=== PATIENT | female | born 1990 | race Hispanic/Latino ===

== ENCOUNTER 2017-04-30 11:36 | Emergency (ER) | payer MEDICAID, OTHER ==
[2017-04-30 11:36] VITALS: BMI 25.0
--- NOTE | 2017-04-30 12:39 | ED PDOC ---
Arrival/HPI - General Chief Complaint: Fever Time Seen by Provider: 04/30/17 12:05 Historian: Patient - History of Present Illness Narrative History of Present Illness (Text): 26 y/o female w/ no sig pmhx other than cigarette smoking presents c/o 3 days of fever(t max at home:103 deg F), generalized headache (denying any nuchal rigidity norfocal neurological deficits ) / sore throat/dysphagia but denying po intolerance/cough productive of whitish sputum, diffuse myalgiae, 1 episode of vomiting in the am today, denies meningococcal rash/sick contacts . Pt most bothered by sore throat. Time/Duration: < week Symptom Course: Unchanged Quality: Aching Past Medical History - Provider Review Nursing Documentation Reviewed: Yes - Tetanus Immunization Tetanus Immunization: Unknown - Past Medical History Past Medical History: No Previous - Psychiatric Hx Substance Use: No - Past Surgical History Past Surgical History: No Previous - Suicidal Assessment Feels Threatened In Home Enviroment: No Family/Social History - Physician Review Nursing Documentation Reviewed: Yes Family/Social History: No Known Family HX Smoking Status: Light Smoker < 10 Cigarettes Daily Hx Alcohol Use: Yes Frequency of alcohol use: Socially Hx Substance Use: No Hx Substance Use Treatment: No Allergies/Home Meds Allergies/Adverse Reactions: Allergies No Known Allergies Allergy (Verified 04/30/17 11:51) Review of Systems - Physician Review All systems were reviewed & negative as marked: Yes - Review of Systems Constitutional: Fevers Eyes: Normal ENT: Sore Throat Respiratory: Cough, Sputum Cardiovascular: Normal Gastrointestinal: Normal Genitourinary Female: Normal Musculoskeletal: Myalgias Skin: Normal Neurological: Headache Endocrine: Normal Hemo/Lymphatic: Normal Psychiatric: Normal Physical Exam Vital Signs Reviewed: Yes Vital Signs Temp Pulse Resp BP Pulse Ox 04/30/17 13:42 99.6 F 103 H 18 103/66 96 04/30/17 13:26 99.6 F 04/30/17 12:26 103 F H 04/30/17 12:16 103.0 F H 108 H 17 102/57 L 99 04/30/17 11:46 102.4 F H 117 H 18 116/76 97 Temperature: Febrile Blood Pressure: Normal Pulse: Regular Respiratory Rate: Normal Appearance: Positive for: Well-Appearing, Non-Toxic, Comfortable Pain Distress: None Mental Status: Positive for: Alert and Oriented X 3 - Systems Exam Head: Present: Atraumatic, Normocephalic Pupils: Present: PERRL Extroacular Muscles: Present: EOMI Conjunctiva: Present: Normal Mouth: Present: Moist Mucous Membranes Pharnyx: Present: ERYTHEMA, TONSILS ENLARGED, Other (+ sunmandibular LN) Neck: Present: Normal Range of Motion Respiratory/Chest: Present: Clear to Auscultation, Good Air Exchange, Other ( occasional rhonchi ). No: Respiratory Distress, Accessory Muscle Use Cardiovascular: Present: Regular Rate and Rhythm, Normal S1, S2. No: Murmurs Abdomen: Present: Normal Bowel Sounds. No: Tenderness, Distention, Peritoneal Signs Back: Present: Normal Inspection Upper Extremity: Present: Normal Inspection. No: Cyanosis, Edema Lower Extremity: Present: Normal Inspection. No: Edema Neurological: Present: GCS=15, CN II-XII Intact, Speech Normal, Motor Func Grossly Intact, Normal Sensory Function, Normal Cerebellar Funct, Norm Deep Tendon Reflexes, Gait Normal, Memory Normal, Normal 2Pt Descrimination Skin: Present: Warm, Dry, Normal Color. No: Rashes Psychiatric: Present: Alert, Oriented x 3, Normal Insight, Normal Concentration Medical Decision Making ED Course and Treatment: 26 y/o woman w/ 3 days of fever and uri like symptoms. labs/imaging wnl, fever defervesced. will d/c home on supportive rx/z-juli course given smoking history w/ mucoid expectoration/antitussive/advised pmd f/u . 04/30/17 14:18 - Lab Interpretations Lab Results: 04/30/17 12:36 04/30/17 12:36 Lab Results 04/30/17 12:36: Lactic Acid 1.4 04/30/17 12:36: Sodium 134, Potassium 4.3, Chloride 100, Carbon Dioxide 26, Anion Gap 12, BUN 7, Creatinine 1.0, Est GFR ( Amer) > 60, Est GFR (Non- Af Amer) > 60, Random Glucose 93, Calcium 8.8, Phosphorus 3.1, Magnesium 1.7, Total Bilirubin 0.5, AST 33, ALT 40, Alkaline Phosphatase 85, Total Protein 8.1 , Albumin 4.1, Globulin 4.0, Albumin/Globulin Ratio 1.0 L 04/30/17 12:36: WBC 5.5, RBC 4.53, Hgb 14.4, Hct 43.1, MCV 95.1, MCH 31.8, MCHC 33.4, RDW 14.7 H, Plt Count 146, MPV 9.0, Gran % 54.7, Lymph % (Auto) 34.4, [place] % (Auto) 10.7 H, Eos % (Auto) 0.0 L, Baso % (Auto) 0.2, Gran # 3.01, Lymph # 1.9, Douglas # 0.6, Eos # 0.0, Baso # 0.01 04/30/17 12:30: Urine Color Light yellow, Urine Appearance Cloudy, Urine pH 6.0 , Ur Specific [place] >= 1.030, Urine Protein 30 H, Urine Glucose (UA) Negative , Urine Ketones Trace H, Urine Blood Small H, Urine Nitrate Negative, Urine Bilirubin Small H, Urine Urobilinogen 0.2, Ur Leukocyte Esterase Negative, Urine RBC 10 - 15, Urine WBC 1 - 3, Ur Epithelial Cells 3 - 4, Amorphous Sediment Large, Urine Bacteria Many, Urine Other Uyeast, Urine HCG, Qual Negative - Medication Orders Current Medication Orders: Discontinued Medications Acetaminophen (Tylenol 325mg Tab) 975 mg PO STAT STA Stop: 04/30/17 12:08 Last Admin: 04/30/17 12:26 Dose: 975 mg [facility] Pain/Vitals Document 04/30/17 12:26 HI (Rec: 04/30/17 12:26 [id number] Vitals Temperature (97.6 F-99.6 F) 103 F Temperature Source Oral Re-Assess: [facility] Pain/Vitals Document 04/30/17 13:26 HI (Rec: 04/30/17 13:39 [id number][facility] Pain Reassessment Is This A Pain ReAssessment? No Vitals Temperature (97.6 F-99.6 F) 99.6 F Azithromycin (Zithromax) 500 mg PO STAT STA PRN Reason: Protocol Stop: 04/30/17 12:36 Last Admin: 04/30/17 13:32 Dose: 500 mg Dexamethasone (Decadron Inj) 10 mg IVP STAT STA Stop: 04/30/17 12:34 Last Admin: 04/30/17 13:32 Dose: 10 mg IVP Administration Document 04/30/17 13:32 HI (Rec: 04/30/17 13:32 [id number][facility] Charges for Administration # of IVP Administrations 1 Sodium Chloride 2,000 ml/ IV (SUPPLIES) 2,000 mls @ 2,912.04 mls/hr IV ONCE ONE PRN Reason: 60 ML/KG/HR Stop: 04/30/17 12:06 Last Admin: 04/30/17 12:45 Dose: 2,912.04 mls/hr eMAR Start Stop Document 04/30/17 12:45 HI (Rec: 04/30/17 12:45 [id number][facility] Intravenous Solution Start Date 04/30/17 Start Time 12:45 Ketorolac Tromethamine (Toradol) 15 mg IVP STAT STA Stop: 04/30/17 12:34 Last Admin: 04/30/17 13:39 Dose: 15 mg MAR Pain Assessment Document 04/30/17 13:39 HI (Rec: 04/30/17 13:39 [id number][facility] Pain Reassessment Is this a pain reassessment? No Location Pain Location Body Site Generalized IVP Administration Document 04/30/17 13:39 HI (Rec: 04/30/17 13:39 [id number][facility] Charges for Administration # of IVP Administrations 1 Oseltamivir Phosphate (Tamiflu Cap) 75 mg PO ONCE ONE PRN Reason: Protocol Stop: 04/30/17 12:35 Last Admin: 04/30/17 13:32 Dose: 75 mg Disposition/Present on Arrival - Present on Arrival Any Indicators Present on Arrival: No History of DVT/PE: No History of Uncontrolled Diabetes: No Urinary Catheter: No History of Decub. Ulcer: No History Surgical Site Infection Following: None - Disposition Have Diagnosis and Disposition been Completed?: Yes Diagnosis: Upper respiratory infection Disposition: HOME/ ROUTINE Disposition Time: 14:20 Patient Plan: Discharge Condition: IMPROVED Discharge Instructions (ExitCare): Upper Respiratory Infection (ED), Viral Syndrome (ED) Print Language: JAMA[place] Additional Instructions: avoid dairy products, drink plenty of luids such as herbal teas/eleno/lemon/ peppermint. get extra rest and follow up with your pmd within the week fr a progress check. Prescriptions: Azithromycin 250 mg PO DAILY #4 tablet Benzocaine/Menthol [Cepacol Sore Throat] 1 constance MM Q2 PRN #30 constance PRN Reason: Pain, Mild (1-3) Ipratropium [Atrovent HFA] 0.018 mg IH Q6 PRN #1 inhaler PRN Reason: Cough Oseltamivir [Tamiflu Cap] 75 mg PO BID #10 cap Forms: [employer] ([place])
[2017-04-30 12:48] LABS: URINE APPEARANCE CLOUDY (CLEAR); URINE BILIRUBIN SMALL (NEGATIVE); URINE BLOOD SMALL (NEGATIVE); URINE COLOR LIGHT YELLOW (YELLOW); URINE GLUCOSE (UA) NEGATIVE (NEGATIVE); URINE KETONE TRACE mg/dL (NEGATIVE); URINE LEUKOCYTE ESTERASE NEGATIVE Leu/uL (NEGATIVE); URINE PROTEIN 30 mg/dL (<30 mg/dL); URINE UROBILINOGEN 0.2 E.U./dL (<1 E.U./dL)
[2017-04-30 12:57] LABS: BASO # 0.01 K/mm3 (0.0-2.0); BASO % 0.2 % (0.0-3.0); GRAN # 3.01 (1.4-6.5); GRAN % 54.7 % (50.0-68.0); HEMATOCRIT 43.1 % (36.0-48.0); LYMPH # 1.9 (1.2-3.4); LYMPH % 34.4 % (22.0-35.0); MEAN CELL VOLUME 95.1 fl (80.0-105.0); MEAN CORPUSCULAR HEMOGLOBIN 31.8 pg (25.0-35.0); MEAN CORPUSCULAR HGB CONC 33.4 g/dl (31.0-37.0); MONO # 0.6 (0.1-0.6); MONO % 10.7 % (1.0-6.0); RED CELL DISTRIBUTION WIDTH 14.7 % (11.5-14.5); WHITE BLOOD COUNT 5.5 10^3/ul (4.5-11.0)
[2017-04-30 13:07] LABS: URINE AMORPHOUS SEDIMENT LARGE; URINE BACTERIA MANY (NEG)
[2017-04-30 13:07] LABS: ALKALINE PHOSPHATASE 85 U/L (38-126); ALT/SGPT 40 U/L (7-56); AST/SGOT 33 U/L (14-36); BILIRUBIN,TOTAL 0.5 mg/dL (0.2-1.3); BLOOD UREA NITROGEN 7 mg/dL (7-21); CALCIUM 8.8 mg/dL (8.4-10.5); CARBON DIOXIDE 26 mmol/L (21-33); CHLORIDE 100 mmol/L (98-107); GFR AFRICAN-AMERICAN > 60; GLUCOSE,RANDOM 93 mg/dL (70-110); MAGNESIUM 1.7 mg/dL (1.7-2.2); PHOSPHOROUS 3.1 mg/dL (2.5-4.5); POTASSIUM 4.3 mmol/L (3.6-5.0); SODIUM 134 mmol/L (132-148); TOTAL PROTEIN 8.1 g/dL (5.8-8.3)
[2017-04-30 13:39] VITALS: TEMP 99.6
[2017-04-30 14:50] VITALS: BP 113/69; PULSE 98; RESP 16; O2SAT 97
--- NOTE | 2017-04-30 23:17 | CARD ---
APPROVED REPORT EKG Measurement Heart [id number] <Conclusion> Sinus tachycardia Otherwise normal ECG
== END 2017-04-30 14:47 | disposition home or self-care (01) ==
LOC: ED 11:36
DX: J06.9 Acute upper respiratory infection, unspecified (principal); F17.210 Nicotine dependence, cigarettes, uncomplicated
CPT/HCPCS: 80053; 81001; 83605; 83735; 84100; 84703; 85025; 87040; 87086; 93005; 96374; 96375; 99285; J1100; J1885; J7040